=== PATIENT | female | born 1990 | race Hispanic/Latino ===

== ENCOUNTER 2022-03-21 09:52 | Day surgery (SDC) | payer BC ==
[2022-03-21] MEDS ORDERED: diphenhydrAMINE 25 MG CAP ONE (10:25)
[2022-03-21] MEDS ORDERED: Acetaminophen 500 MG TAB ONE (10:25)
[2022-03-21] MEDS ORDERED: Iron Sucrose Complex 500 MG in Sodium Chloride 0.9% 250 ML 250 ML IVPB SCH (10:30)
[2022-03-21] MEDS ORDERED: Acetaminophen 500 MG TAB PO SCH (10:30)
== END 2022-03-21 15:15 | disposition home or self-care (01) ==
LOC: CSHSDC 09:52
PROVIDERS: ATTEND Family Medicine
DX: O99.019 Anemia complicating pregnancy, unspecified trimester (principal)
CPT/HCPCS: J1756; J7050

== ENCOUNTER 2022-05-05 19:00 | Inpatient (IN) | payer BC ==
[2022-05-06] MEDS ORDERED: Promethazine HCl 25 MG/ML VIAL IM PRN ×2 (02:11→09:02)
[2022-05-06] MEDS ORDERED: hydrALAZINE 20 MG/ML VIAL SLOW IVP PRN (02:11)
[2022-05-06] MEDS ORDERED: Ibuprofen 800 MG TAB PO PRN (02:11)
[2022-05-06] MEDS ORDERED: NS w/ Oxytocin 30 units 500 ML IV SCH ×2 (02:11)
[2022-05-06] MEDS ORDERED: Penicillin G Potassium 5 MILL.UNITS in Sodium Chloride 0.9% 100 ML IVPB SCH (02:11)
[2022-05-06] MEDS ORDERED: Butorphanol Tartrate 1 MG/ML VIAL SLOW IVP PRN (02:11)
[2022-05-06] MEDS ORDERED: Lactated Ringer's 1,000 ML IV SCH (02:11)
[2022-05-06] MEDS ORDERED: HYDROcodone/Acetaminophen 5/325 mg Tablet PO PRN ×2 (02:11)
[2022-05-06] MEDS ORDERED: Ondansetron PF 4 MG/2 ML Vial IVP PRN ×2 (02:11→09:02)
[2022-05-06] MEDS ORDERED: Lidocaine 1% (PF) 30 ML VIAL SC PRN (02:11)
[2022-05-06 02:38] LABS: Mean Corpuscular HGB CONC 31.6 g/dL (32.0-36.0); Mean Corpuscular Hemoglobin 22.9 pg (27.0-33.0); Mean Corpuscular Volume 72.5 fl (81.6-98.3); Mean Platelet Volume 9.7 fl (7.4-10.4); Platelet Count 363 10x3/uL (150-450); RBC Distribution Width 20.4 % (11.5-14.5); Red Blood Cell (RBC) Count 3.93 10x6/uL (3.90-5.03); White Blood Cell (WBC) Count 11.6 10x3/uL (3.5-10.5)
[2022-05-06 03:13] LABS: Syphilis Antibody Nonreactive (Nonreactive); Syphilis Antibody Index 0.04 S/CO (<1.00 Non-Reactive)
[2022-05-06 03:13] LABS: HBSAg Index 0.12 S/CO (0-0.99); Hep B Surf Ag Non-Reactive S/CO (NonReactive)
[2022-05-06] MEDS ORDERED: Misoprostol 100 MCG TAB VAG SCH (03:30)
[2022-05-06 05:23] LABS: SARS-CoV-2 NAA Rapid Test Not Detected (NotDetected)
[2022-05-06] MEDS ORDERED: Bupivacaine/Epinephrine 0.25% 30 ML VIAL ONE (08:00)
[2022-05-06] MEDS ORDERED: Fentanyl 2 mcg/Bup 0.1% Cadd 100 ML ONE ×2 (08:08→15:51)
[2022-05-06] MEDS: Penicillin G 2.5 MILL.units 2.5 MILL.UNITS in Premix Bag 1 BAG IVPB SCH ×4 (08:41→20:03)
[2022-05-06] MEDS ORDERED: Lactated Ringer's 500 ML IV PRN (09:02)
[2022-05-06] MEDS ORDERED: diphenhydrAMINE 50 MG/ML VIAL IVP PRN (09:02)
[2022-05-06] MEDS ORDERED: Naloxone HCl 0.4 mg/ml Vial IVP PRN ×2 (09:02)
[2022-05-06] MEDS ORDERED: Acetaminophen 325 MG TAB PO PRN (09:02)
[2022-05-06] MEDS ORDERED: Moisturizing Cream (Eucerin) 113 GM JAR TOP PRN (09:02)
[2022-05-06] MEDS ORDERED: ePHEDrine Sulfate 50 MG/10 ML VIAL SLOW IVP PRN (09:02)
[2022-05-06] MEDS ORDERED: Fentanyl 2 mcg/Bupivacaine 0.1% Cassette 100 ML EPIDURAL SCH (09:15)
[2022-05-06] MEDS ORDERED: Communication Order-Pharmacy FS SCH (09:15)
[2022-05-06 11:45] VITALS: BMI 54.3
[2022-05-06] MEDS ORDERED: Azithromycin 500 MG in Sodium Chloride 0.9% 250 ML 250 ML IVPB SCH (19:15)
[2022-05-06] MEDS ORDERED: Famotidine/PF 20 mg/2ml Vial SLOW IVP PRN (19:15)
[2022-05-06] MEDS ORDERED: CEFAZOLIN 2 GM in Sodium Chloride 0.9% 100 ML IVPB SCH (19:15)
[2022-05-06] MEDS ORDERED: Famotidine/PF 20 mg/2ml Vial ONE (20:53)
[2022-05-06] MEDS ORDERED: Ondansetron PF 4 MG/2 ML Vial ONE (20:55)
[2022-05-06] MEDS ORDERED: Oxytocin 10 UNITS/ML VIAL ONE (20:55)
[2022-05-06] MEDS ORDERED: Morphine PF 10 MG/10 ML VIAL ONE (21:10)
[2022-05-06] MEDS ORDERED: Tranexamic Acid 1,000 MG/10 ML VIAL ONE (21:31)
[2022-05-06] MEDS ORDERED: Misoprostol 200 MCG TAB ONE (21:31)
[2022-05-06 23:20] LABS: Hemoglobin 8.3 g/dL (12.0-15.5)
[2022-05-07] MEDS ORDERED: Promethazine HCl 25 MG/ML VIAL IM PRN (00:08)
[2022-05-07] MEDS ORDERED: Naloxone HCl 0.4 mg/ml Vial IV PRN (00:08)
[2022-05-07] MEDS ORDERED: Fentanyl 100 MCG/2 ML VIAL SLOW IVP PRN (00:08)
[2022-05-07] MEDS ORDERED: Naloxone HCl 0.4 mg/ml Vial IVP PRN ×2 (00:08)
[2022-05-07] MEDS ORDERED: Ondansetron HCl/PF 4 MG/2 ML Vial IVP PRN (00:08)
[2022-05-07] MEDS ORDERED: Moisturizing Cream (Eucerin) 113 GM JAR TOP PRN (00:08)
[2022-05-07] MEDS ORDERED: Ondansetron PF 4 MG/2 ML Vial IVP PRN ×2 (00:08→05:14)
[2022-05-07] MEDS ORDERED: Promethazine HCl 25 MG SUPP PR PRN (00:08)
[2022-05-07] MEDS ORDERED: Meperidine HCl/PF 25 MG/ML VIAL SLOW IVP PRN (00:08)
[2022-05-07] MEDS ORDERED: Ketorolac Tromethamine 30 MG/ML VIAL IVP PRN (00:08)
[2022-05-07] MEDS ORDERED: diphenhydrAMINE 50 MG/ML VIAL IVP PRN (00:08)
[2022-05-07] MEDS ORDERED: Communication Order-Pharmacy FS SCH (00:15)
[2022-05-07] MEDS ORDERED: Ketorolac Tromethamine 30 MG/ML VIAL IVP SCH (00:15)
[2022-05-07] MEDS ORDERED: Ketorolac Tromethamine 30 MG/ML VIAL ONE (00:27)
[2022-05-07] MEDS ORDERED: Simethicone Chewable 80 MG TAB PO PRN (05:14)
[2022-05-07] MEDS ORDERED: diphenhydrAMINE 25 MG CAP PO PRN (05:14)
[2022-05-07] MEDS ORDERED: NS w/ Oxytocin 30 units 500 ML IV SCH (05:14)
[2022-05-07] MEDS ORDERED: hydrALAZINE 20 MG/ML VIAL SLOW IVP PRN (05:14)
[2022-05-07] MEDS ORDERED: Boostrix 0.5 ML (Tdap) VIAL (>/=7 yrs of age) IM ONE (05:14)
[2022-05-07] MEDS ORDERED: Bisacodyl 10 MG SUPP PR PRN (05:14)
[2022-05-07] MEDS: Penicillin G 2.5 MILL.units 2.5 MILL.UNITS in Premix Bag 1 BAG IVPB SCH (05:20)
[2022-05-07] MEDS: Levothyroxine Sodium 75 MCG TAB PO SCH (06:04)
[2022-05-07] MEDS: Labetalol HCl 200 MG TAB PO SCH (09:03)
[2022-05-07] MEDS: Docusate 100 MG CAP PO SCH (09:04)
[2022-05-07] MEDS: Ferrous Sulfate 325 MG TAB PO SCH (09:04)
[2022-05-07 10:10] LABS: Hemoglobin 7.1 g/dL (12.0-15.5)
[2022-05-07] MEDS: HYDROcodone/Acetaminophen 5/325 mg Tablet PO PRN ×2 (11:26→16:49)
[2022-05-08] MEDS: HYDROcodone/Acetaminophen 5/325 mg Tablet PO PRN ×3 (03:24→17:08)
[2022-05-08] MEDS: Ibuprofen 800 MG TAB PO SCH ×3 (05:05→22:22)
[2022-05-08] MEDS: Ferrous Sulfate 325 MG TAB PO SCH ×3 (05:07→22:23)
[2022-05-08] MEDS: Docusate 100 MG CAP PO SCH ×3 (05:07→22:23)
[2022-05-08] MEDS: Labetalol HCl 200 MG TAB PO SCH ×3 (05:35→22:23)
[2022-05-08] MEDS: Levothyroxine Sodium 75 MCG TAB PO SCH (07:52)
[2022-05-09] MEDS: HYDROcodone/Acetaminophen 5/325 mg Tablet PO PRN ×2 (02:13→08:28)
[2022-05-09] MEDS: Levothyroxine Sodium 75 MCG TAB PO SCH (05:45)
[2022-05-09] MEDS: Ibuprofen 800 MG TAB PO SCH (05:45)
[2022-05-09] MEDS: Labetalol HCl 200 MG TAB PO SCH (08:22)
[2022-05-09] MEDS: Docusate 100 MG CAP PO SCH (08:28)
[2022-05-09] MEDS: Ferrous Sulfate 325 MG TAB PO SCH (08:28)
[2022-05-09 12:11] VITALS: BP 143/77; TEMP 98
== END 2022-05-09 14:10 | disposition home or self-care (01) | DRG 788 ==
LOC: CSHLD 05-06 01:11 → CSHPED 05-07 01:44
PROVIDERS: ADMIT Obstetrics & Gynecology; ATTEND Obstetrics & Gynecology
PROC: 10H07YZ Insertion of Other Device into Products of Conception, Via Natural or Artificial Opening (ICD-10-PCS; principal; 2022-05-06)
PROC: 10D00Z1 Extraction of Products of Conception, Low, Open Approach (ICD-10-PCS; 2022-05-06)
PROC: 3E033VJ Introduction of Other Hormone into Peripheral Vein, Percutaneous Approach (ICD-10-PCS; 2022-05-06)
PROC: 10907ZC Drainage of Amniotic Fluid, Therapeutic from Products of Conception, Via Natural or Artificial Opening (ICD-10-PCS; 2022-05-06)
DX: O10.92 Unspecified pre-existing hypertension complicating childbirth (principal); Z3A.38 38 weeks gestation of pregnancy; Z37.0 Single live birth; O99.214 Obesity complicating childbirth; E03.9 Hypothyroidism, unspecified; O99.284 Endocrine, nutritional and metabolic diseases complicating childbirth; E66.01 Morbid (severe) obesity due to excess calories; D64.9 Anemia, unspecified; O99.02 Anemia complicating childbirth; O62.2 Other uterine inertia; O62.1 Secondary uterine inertia; Z20.822 Contact with and (suspected) exposure to COVID-19
CPT/HCPCS: 36415; 51702; 85014; 85018; 85027; 86780; 86850; 86900; 86901; 87340; J1885; J2274; J2405; J2540; J2590; J3490; S0028; U0002

== ENCOUNTER 2023-06-08 15:04 | Outpatient (CLI) | payer BC | END 2023-06-08 15:05 | disposition home or self-care (01) | LOC: CSHLAB 15:04 | PROVIDERS: ATTEND Obstetrics & Gynecology | DX: Z01.812 Encounter for preprocedural laboratory examination (principal) | CPT/HCPCS: 85027; 86780; 86850; 86900; 86901; 87340; J1756; J7050 ==

== ENCOUNTER 2023-06-10 | Inpatient (IN) | payer BC | END 2023-06-13 12:55 | disposition home or self-care (01) | DRG 787 | PROVIDERS: ADMIT Obstetrics & Gynecology | PROC: 10D00Z1 Extraction of Products of Conception, Low, Open Approach (ICD-10-PCS; principal; 2023-06-10) | PROC: 3E033VJ Introduction of Other Hormone into Peripheral Vein, Percutaneous Approach (ICD-10-PCS; 2023-06-10) | PROC: 30233N1 Transfusion of Nonautologous Red Blood Cells into Peripheral Vein, Percutaneous Approach (ICD-10-PCS; 2023-06-10) | DX: O34.211 Maternal care for low transverse scar from previous cesarean delivery (principal); O10.92 Unspecified pre-existing hypertension complicating childbirth; O72.1 Other immediate postpartum hemorrhage; O99.214 Obesity complicating childbirth; O99.02 Anemia complicating childbirth; Z3A.39 39 weeks gestation of pregnancy; Z37.0 Single live birth ==

== ENCOUNTER 2023-06-25 17:47 | Inpatient (IN) | payer BC ==
[~2023-06-25 17:47] MED LIST: Iopamidol 300 61% 100 ML VIAL FS ONE
[2023-06-25 19:12] LABS: #Basophils 0.04 10x3/uL (0.0-0.2); #Eosinphils 0.01 10x3/uL (0.0-0.5); #Monocytes 1.54 10x3/uL (0.0-1.1); #Neutrophils 15.29 10x3/uL (1.5-8.4); %Basophils 0.2 % (0.0-2.0); %Eosinophils 0.1 % (0.0-6.0); %Lymphocytes 5.8 % (18.0-47.0); %Monocytes 8.5 % (0.0-10.0); %Neutrophils 84.8 % (40.0-75.0); ALT (SGPT) 10 U/L (8-55); AST (SGOT) 7 U/L (5-34); Albumin 3.1 g/dL (3.5-5.0); Alkaline Phosphatase 81 U/L (40-110); Anion Gap 14 mmol/L (10-20); BUN (Urea Nitrogen) 8 mg/dL (7.0-18.7); Bilirubin, Total 0.6 mg/dL (0.2-1.2); Calc. Creatinine Clearance 0 mL/min (70-130); Calcium 8.9 mg/dL (7.8-10.44); Carbon Dioxide 21 mmol/L (22-29); Chloride 108 mmol/L (98-107); Estimated GFR 120; Globulin 3.8 g/dL (2.4-3.5); Glucose 91 mg/dL (70-105); Hematocrit 28.1 % (34.9-44.5); Mean Corpuscular Volume 78.1 fl (81.6-98.3); Mean Platelet Volume 9.7 fl (7.4-10.4); Platelet Count 411 10x3/uL (150-450); Potassium 3.3 mmol/L (3.5-5.1); Protein, Total 6.9 g/dL (6.0-8.3); RBC Distribution Width 22.3 % (11.5-14.5); Sodium 140 mmol/L (136-145)
[2023-06-25] MEDS ORDERED: Ketorolac Tromethamine 30 MG (1 mL) VIAL ONE (19:31)
[2023-06-25] MEDS ORDERED: Acetaminophen 500 MG TAB ONE (19:32)
[2023-06-25 20:23] LABS: Influenza A by NAA Not Detected (NotDetected); Influenza B by NAA Not Detected (NotDetected); SARS-CoV-2 NAA Rapid Test Not Detected (NotDetected)
[2023-06-25 20:38] LABS: Bilirubin Neg (Negative); Blood, Urine 25 (Negative); Clarity Slightly Cloudy (Clear); Glucose, Urine (Dipstick) Normal (Negative); Ketone, Urine Negative (Negative); Leukocyte 500 (Negative); Nitrite Positive (Negative); Protein, Urine (Dipstick) 30 mg/dl (Neg-Trace); Specific Gravity, Urine 1.015 (1.005-1.030); Urobilinogen Normal mg/dL (Less than 2)
[2023-06-25] MEDS ORDERED: cefTRIAXone (ROCEPHIN) 2 GM VIAL ONE (20:49)
[2023-06-25 20:51] LABS: Bacteria/HPF 4+ HPF (None Seen); CAUTI Indications for Culture Pelvic or flank pain; RBC/HPF 0-3 HPF (0-3); Squamous Epithelial 0-3 HPF (0-3); Urine Culture Reflex Yes Yes; WBC/HPF Greater than 50 HPF (0-3)
[2023-06-25] MEDS ORDERED: hydrALAZINE 20 MG/ML VIAL SLOW IVP PRN (23:37)
[2023-06-25] MEDS ORDERED: Ondansetron PF 4 MG/2 ML Vial IVP PRN (23:37)
[2023-06-26] MEDS: Potassium Chloride 20 MEQ TAB PO SCH (02:27)
[2023-06-26] MEDS: Acetaminophen 500 MG TAB PO PRN (02:30)
[2023-06-26] MEDS: Ketorolac Tromethamine 30 MG (1 mL) VIAL IVP SCH (03:50)
[2023-06-26 04:45] LABS: Anion Gap 11 mmol/L (10-20); BUN (Urea Nitrogen) 8 mg/dL (7.0-18.7); Calc. Creatinine Clearance 0 mL/min (70-130); Calcium 8.2 mg/dL (7.8-10.44); Carbon Dioxide 21 mmol/L (22-29); Chloride 111 mmol/L (98-107); Estimated GFR 121; Glucose 112 mg/dL (70-105); Potassium 3.4 mmol/L (3.5-5.1); Sodium 140 mmol/L (136-145)
[2023-06-26 05:19] LABS: #Basophils 0.04 10x3/uL (0.0-0.2); #Eosinphils 0.01 10x3/uL (0.0-0.5); #Monocytes 1.16 10x3/uL (0.0-1.1); #Neutrophils 12.06 10x3/uL (1.5-8.4); %Basophils 0.3 % (0.0-2.0); %Eosinophils 0.1 % (0.0-6.0); Hemoglobin 8.4 g/dL (12.0-15.5); Mean Corpuscular Hemoglobin 24.3 pg (27.0-33.0); Mean Corpuscular Volume 81.2 fl (81.6-98.3); Mean Platelet Volume 9.9 fl (7.4-10.4); Platelet Count 349 10x3/uL (150-450); RBC Distribution Width 22.6 % (11.5-14.5); Red Blood Cell (RBC) Count 3.45 10x6/uL (3.90-5.03); White Blood Cell (WBC) Count 14.5 10x3/uL (3.5-10.5)
[2023-06-26] MEDS ORDERED: Ibuprofen 800 MG TAB PO SCH (06:00)
[2023-06-26] MEDS: Enoxaparin 40 MG (0.4 mL) SYRINGE SC SCH (08:28)
[2023-06-26] MEDS: Ibuprofen 800 MG TAB PO SCH (13:42)
[2023-06-26] MEDS: Aspirin/APAP/Caffeine Tab (Excedrin Migraine) PO PRN (16:11)
[2023-06-26] MEDS: cefTRIAXone\\ROCEPHIN 2 GM in Sodium Chloride 0.9% 100 ML IVPB SCH (20:40)
[2023-06-27 05:57] LABS: #Basophils 0.04 10x3/uL (0.0-0.2); #Eosinphils 0.04 10x3/uL (0.0-0.5); #Monocytes 0.68 10x3/uL (0.0-1.1); #Neutrophils 6.16 10x3/uL (1.5-8.4); %Basophils 0.5 % (0.0-2.0); %Eosinophils 0.5 % (0.0-6.0); %Lymphocytes 12.2 % (18.0-47.0); %Monocytes 8.6 % (0.0-10.0); %Neutrophils 77.4 % (40.0-75.0); Hematocrit 25.1 % (34.9-44.5); Hemoglobin 7.9 g/dL (12.0-15.5); Mean Corpuscular HGB CONC 31.5 g/dL (32.0-36.0); Mean Corpuscular Volume 79.4 fl (81.6-98.3); Mean Platelet Volume 10.1 fl (7.4-10.4); Platelet Count 272 10x3/uL (150-450); RBC Distribution Width 21.7 % (11.5-14.5); Red Blood Cell (RBC) Count 3.16 10x6/uL (3.90-5.03)
[2023-06-27 08:20] VITALS: BP 104/59; TEMP 97.9
== END 2023-06-27 14:50 | disposition home or self-care (01) | DRG 776 ==
LOC: CSHERS 17:47 → CSHPP 23:22
PROVIDERS: ADMIT Obstetrics & Gynecology; ATTEND Obstetrics & Gynecology
DX: O86.21 Infection of kidney following delivery (principal); Z68.43 Body mass index [BMI] 50.0-59.9, adult; O99.285 Endocrine, nutritional and metabolic diseases complicating the puerperium; E87.6 Hypokalemia; O99.215 Obesity complicating the puerperium; E66.9 Obesity, unspecified; O90.81 Anemia of the puerperium; D64.9 Anemia, unspecified; O10.93 Unspecified pre-existing hypertension complicating the puerperium; Z79.899 Other long term (current) drug therapy
CPT/HCPCS: 36415; 71045; 74177; 80048; 80053; 81001; 83605; 83690; 85025; 87040; 87077; 87086; 87186; J0696; J1650; J1885; J3490; Q9967

== ENCOUNTER 2024-11-24 09:45 | Outpatient (CLI) | payer BC | END 2024-11-24 09:46 | disposition home or self-care (01) | LOC: CSHLAB 09:45 | PROVIDERS: ATTEND Obstetrics & Gynecology | DX: Z01.812 Encounter for preprocedural laboratory examination (principal) ==

== ENCOUNTER 2024-11-25 05:31 | Inpatient (IN) | payer BC ==
[2024-11-24 11:02] VITALS: BMI 53.4
[2024-11-25] MEDS ORDERED: hydrALAZINE 20 MG/ML VIAL SLOW IVP PRN ×2 (06:32→11:21)
[2024-11-25] MEDS ORDERED: Ondansetron PF 4 MG/2 ML Vial IVP PRN ×4 (06:32→11:21)
[2024-11-25] MEDS ORDERED: Oxytocin 30 units/NS 500 ML 500 ML IV SCH (06:32)
[2024-11-25 06:59] LABS: Hematocrit 30.8 % (34.9-44.5); Hemoglobin 9.3 g/dL (12.0-15.5); Mean Corpuscular Hemoglobin 22.2 pg (27.0-33.0); Mean Corpuscular Volume 73.5 fL (81.6-98.3); Platelet Count 296 10x3/uL (150-450); Red Blood Cell (RBC) Count 4.19 10x6/uL (3.90-5.03); White Blood Cell (WBC) Count 12.00 10x3/uL (3.5-10.5)
[2024-11-25] MEDS: Bicitra 30 ML UDCUP PO PRN (07:10)
[2024-11-25] MEDS: Famotidine/PF 20 mg/2ml Vial SLOW IVP PRN (07:21)
[2024-11-25 07:34] LABS: Syphilis Antibody Index 0.08 S/CO (<1.00 Non-Reactive)
[2024-11-25 07:35] LABS: Hep B Surf Ag - L&D Non-Reactive S/CO (NonReactive)
[2024-11-25] MEDS ORDERED: diphenhydrAMINE 50 MG/ML VIAL IVP PRN (09:05)
[2024-11-25] MEDS ORDERED: Meperidine HCl/PF 25 MG (1 mL) VIAL SLOW IVP PRN (09:05)
[2024-11-25] MEDS ORDERED: Ketorolac Tromethamine 30 MG (1 mL) VIAL IVP SCH (09:15)
[2024-11-25] MEDS ORDERED: Communication Order-Pharmacy FS SCH (09:15)
[2024-11-25] MEDS ORDERED: Simethicone Chewable 80 MG TAB PO PRN (11:21)
[2024-11-25] MEDS ORDERED: Lanolin Ointment 7 GM TUBE TOP PRN (11:21)
[2024-11-25] MEDS ORDERED: Bisacodyl 10 MG SUPP PR PRN (11:21)
[2024-11-25] MEDS ORDERED: diphenhydrAMINE 25 MG CAP PO PRN (11:21)
[2024-11-25] MEDS: Famotidine/PF 20 mg/2ml Vial ONE (11:36)
[2024-11-25] MEDS: Bicitra 30 ML UDCUP ONE (11:36)
[2024-11-25] MEDS: CEFAZOLIN 2 GM VIAL ONE (11:36)
[2024-11-25] MEDS: Hepatitis B Vaccine 10 MCG/0.5 ML SYR ONE (11:37)
[2024-11-25] MEDS: Ondansetron PF 4 MG/2 ML Vial ONE (11:37)
[2024-11-25] MEDS: Erythromycin Base 0.5% Oint 1 GM TUBE ONE (11:37)
[2024-11-25] MEDS: Oxytocin 10 UNITS/ML VIAL ONE ×2 (11:37→11:38)
[2024-11-25] MEDS: Dexamethasone 10 MG/ML VIAL ONE (11:37)
[2024-11-25] MEDS: Ketorolac Tromethamine 30 MG (1 mL) VIAL ONE (11:38)
[2024-11-25] MEDS: CEFAZOLIN 1 GM VIAL ONE (11:38)
[2024-11-25] MEDS: PHENYLEPHRINE-NS 100 MCG/ML 10 ML SYRINGE ONE (11:38)
[2024-11-25] MEDS: Boostrix 0.5 ML (Tdap) VIAL (>/=7 yrs of age) IM ONE (11:41)
[2024-11-25] MEDS: Ferrous Sulfate 325 MG TAB PO SCH ×2 (11:41→22:57)
[2024-11-25] MEDS: Ketorolac Tromethamine 30 MG (1 mL) VIAL IVP SCH ×2 (17:19→17:20)
[2024-11-25] MEDS ORDERED: HYDROcodone/Acetaminophen 10/325 mg Tablet PO PRN (21:15)
[2024-11-25] MEDS ORDERED: HYDROcodone/Acetaminophen 5/325 mg Tablet PO PRN (21:15)
[2024-11-26 03:45] LABS: Hematocrit 27.1 % (34.9-44.5); Hemoglobin 8.0 g/dL (12.0-15.5); Mean Corpuscular Hemoglobin 22.2 pg (27.0-33.0); Mean Corpuscular Volume 75.3 fL (81.6-98.3); Platelet Count 245 10x3/uL (150-450); Red Blood Cell (RBC) Count 3.60 10x6/uL (3.90-5.03); White Blood Cell (WBC) Count 14.40 10x3/uL (3.5-10.5)
[2024-11-26] MEDS: Ketorolac Tromethamine 30 MG (1 mL) VIAL IVP SCH (13:05)
[2024-11-26] MEDS: Ibuprofen 800 MG TAB PO SCH (21:17)
[2024-11-27 12:44] VITALS: BP 123/68; TEMP 98.1
== END 2024-11-27 12:30 | disposition home or self-care (01) | DRG 788 ==
LOC: CSHLD 05:31 → CSHPP 11:00
PROVIDERS: ADMIT Obstetrics & Gynecology; ATTEND Obstetrics & Gynecology
PROC: 10D00Z1 Extraction of Products of Conception, Low, Open Approach (ICD-10-PCS; principal; 2024-11-25)
DX: O34.211 Maternal care for low transverse scar from previous cesarean delivery (principal); O32.1XX0 Maternal care for breech presentation, not applicable or unspecified; Z3A.37 37 weeks gestation of pregnancy; Z37.0 Single live birth; O99.214 Obesity complicating childbirth; O99.02 Anemia complicating childbirth
CPT/HCPCS: 36415; 51702; 85027; 86780; 86850; 86900; 86901; 87340; 88302; J0690; J1100; J1308; J1885; J2274; J2405; J2550; J2590; J3010